=== PATIENT | male | born 1985 | race Caucasian/White ===

== ENCOUNTER 2023-03-15 13:24 | Emergency (ER) | payer BC ==
[2023-03-15] MEDS ORDERED: KETOROLAC 15 MG/ML 1 ML VIAL IM STA (14:05)
--- NOTE | 2023-03-15 14:06 | ED ---
Upper Extremity HPI - General Source: patient, family, RN notes reviewed Mode of arrival: ambulatory Limitations: no limitations <Jennifer Carbajal - Last Filed: 03/15/23 14:05> <Juan Luis Goncalves - Last Filed: 03/15/23 20:07> - General Chief Complaint: Extremity Injury, Upper Stated Complaint: fall Time Seen by Provider: 03/15/23 14:05 - History of Present Illness Initial Comments: patient is a 38-year-old male presenting to the ER with chief complaint of falling down stairs. Patient states that his left shoulder and hip have been hurting. Patient states difficult for him to walk. (Jennifer Carbajal) Patient originally evaluated as a quick note. Presents for evaluation after a fall over 24 hours ago. Was drinking and fell down steps very early on Thursday morning 03/14/2023. Fell down approximately 8 steps. Since that time is been complaining of left-sided shoulder pain, left hip pain. Has been able to ambulate however with some difficulty secondary to some pain however is able to move. Denies any other obvious injuries. Denies back pain, spine pain. Denies abdominal pain, nausea, vomiting. Does not believe he lost consciousness. Is not on blood thinners. Fall occurred approximately 36 hours prior to initial evaluation in the ER. Presents for further evaluation. (Juan Luis Goncalves) - Related Data Previous Rx's Medication Instructions Recorded Cyclobenzaprine [Flexeril] 5 mg PO TID PRN 7 Days #21 tab 03/15/23 HYDROcodone/APAP 5-325MG [[place] 1 tab PO Q6HR PRN 3 Days #12 tab 03/15/23 5-325] Lidocaine 5% Patch [Lidoderm 5% 1 patch TOPICAL DAILY PRN 7 Days 03/15/23 Patch] #7 patch Allergies Allergy/AdvReac Type Severity Reaction Status Date / Time No Known Allergies Allergy Verified 03/15/23 13:57 Review of Systems ROS Other: All systems not noted in ROS Statement are negative. <Jennifer Carbajal - Last Filed: 03/15/23 14:05> ROS Other: All systems not noted in ROS Statement are negative. <Juan uLis Goncalves - Last Filed: 03/15/23 20:07> ROS Statement: Those systems with pertinent positive or pertinent negative responses have been documented in the HPI. Review of Systems: CONST: Denies fever EYES: Denies blurry vision ENT: Denies nasal congestion C/V: Denies Chest pain RESP: Denies shortness of breath GI: Denies abdominal pain : Denies dysuria SKIN: Denies rash. MSK: Endorses left hip pain, left shoulder pain. NEURO: Denies headache (Juan Luis Goncalves) Past Medical History Past Medical History: No Reported History History of Any Multi-Drug Resistant Organisms: None Reported Past Surgical History: No Surgical Hx Reported Past Psychological History: No Psychological Hx Reported Smoking Status: Never smoker Past Alcohol Use History: Occasional Past Drug Use History: None Reported <Jennifer Carbajal - Last Filed: 03/15/23 14:05> General Exam Limitations: no limitations <Jennifer Carbajal - Last Filed: 03/15/23 14:05> <Juan Luis Goncalves - Last Filed: 03/15/23 20:07> - General Exam Comments Initial Comments: Visual Physical Exam Vital signs reviewed General: Well-appearing, nontoxic, no acute distress. Head: Normocephalic, atraumatic Eyes: PERRLA, EOMI ENT: Airway patent Chest: Nonlabored breathing Skin: No visual rash, normal skin tone Neuro: Alert and oriented 3 Musculoskeletal: No gross abnormalities (Jennifer Carbajal) General: Appears in mild distress secondary to pain. HEAD: Normal with no signs of head trauma. EYES: PERRLA, EOMI, conjunctiva normal, no discharge. Pupils are 3 mm and equ al bilaterally. ENT: Hearing grossly intact, normal oropharynx. RESPIRATORY: Clear breath sounds bilaterally. No wheezes, rales, or rhonchi. C/V: Regular rate and rhythm. S1 and S2 auscultated, no edema, peripheral pulses 2+ and intact throughout ABD: Abd is soft, nontender, nondistended EXT: Normal range of motion, no obvious deformity. Possible right greater toe fracture. Mild tenderness palpation of left wrist and right hand. No focal tenderness. No obvious deformities. Left shoulder tenderness to palpation over the distal clavicle. Some mild left rib tenderness in the midaxillary line of the fourth and fifth ribs. Some mild left lateral pelvis tenderness palpation. Normal range of motion of the left hip. Able to bear weight. SKIN: Bruising over her right greater toe. NEURO: Alert and oriented x 4. Cranial nerves II-XII intact. No focal sensory or strength deficits. GCS 15 (Juan Luis Goncalves) Course Vital Signs 03/15/23 03/15/23 03/15/23 13:55 16:06 17:50 Temperature 98 F 97.9 F Pulse Rate 112 H 107 H 78 Respiratory 20 18 16 Rate Blood Pressure 124/76 131/80 131/76 O2 Sat by Pulse 99 99 99 Oximetry Medical Decision Making <Jennifer Carbajal - Last Filed: 03/15/23 14:05> - Lab Data Result diagrams: 03/15/23 15:59 03/15/23 15:59 <Juan Luis Goncalves - Last Filed: 03/15/23 20:07> - Medical Decision Making I performed the quick note portion of the exam. Electronically signed by Jennifer Carbajal PA-C (Jennifer Carbajal) Was pt. sent in by a medical professional or institution ([facility]andall, PNEUMATIC TOOL REPAIRER, urgent care, hospital, or retirement...) When possible be specific @ -No Did you speak to anyone other than the patient for history (EMS, parent, family, police, friend...)? What history was obtained from this source @ -No Did you review nursing and triage notes (agree or disagree)? Why? @ -I reviewed and agree with nursing and triage notes Were old charts reviewed (outside hosp., previous admission, EMS record, old EKG, old radiological studies, urgent care reports/EKG's, retirement records)? Report findings @ -No old charts were reviewed Differential Diagnosis (chest pain, altered mental status, abdominal pain women, abdominal pain men, vaginal bleeding, weakness, fever, dyspnea, syncope, headache, dizziness, GI bleed, back pain, seizure, CVA, palpatations, mental health, musculoskeletal)? @ -Differential Musculoskeletal Muscular strain, contusion, ligament sprain, fracture, arthritis, septic arthritis, bursitis, cellulitis, muscle spasm, nerve compression, DVT, arterial occlusion, herpes zoster, electrolyte abnormality, tumor.... This is not meant to be in all inclusive list EKG interpreted by me (3pts min.). @ -None done X-rays interpreted by me (1pt min.). @ -Pelvis x-ray, left shoulder x-ray obtained via quick note positive for acute fracture of the distal left clavicle as well as fracture of the left iliac fracture of the pelvis. Patient also has a fracture of the left second rib it appears. X-rays of the right foot, left wrist, right hand negative for any obvious injury. CT interpreted by me (1pt min.). @ - CT brain, C-spine unremarkable for any obvious acute traumatic injury. CT chest abdomen pelvis reveals left comminuted fracture of the left iliac wing without any involvement of the left hip joint. Pelvic ring remains intact and stable. Surrounding edema and hematoma as expected with the comminuted fracture. CT of the chest reveals the distal clavicle fracture as well as left posterior rib fractures. They do see fourth and fifth rib fractures as well as second rib fractures. Cannot rule out fractures to the distal ribs however patient is no tenderness over the site. U/S interpreted by me (1pt. min.). @ -None done What testing was considered but not performed or refused? (CT, X-rays, U/S, labs )? Why? @ -None What meds were considered but not given or refused? Why? @ -None Did you discuss the management of the patient with other professionals (professionals i.e. , PA, PNEUMATIC TOOL REPAIRER, lab, RT, psych nurse, social media editor, senior analysis specialist, teacher, police commanding officer, family service caseworker)? Give summary @ -Discussed with on-call orthopedics Dr. Jeff, and patient has a stable pelvic fracture that is nonoperative management. Discussed the multiple rib fractures and left clavicle fracture. Recommended weightbearing as tolerated with crutches, sling, follow-up in the office this week. Patient was in agreement this plan. Also discussed the case with the radiologist who came on- call reviewed images with me and concurs with the results. Was smoking cessation discussed for >3mins.? @ -No Was critical care preformed (if so, how long)? @ -No Were there social determinants of health that impacted care today? How? (Homelessness, low income, unemployed, alcoholism, drug addiction, transportation, low edu. Level, literacy, decrease access to med. care, longterm, rehab)? @ -No Was there de-escalation of care discussed even if they declined (Discuss DNR or withdrawal of care, Hospice)? DNR status @ -No What co-morbidities impacted this encounter? (DM, HTN, Smoking, COPD, CAD, Cancer, CVA, ARF, Chemo, Hep., AIDS, mental health diagnosis, sleep apnea, morbid obesity)? @ -None Was patient admitted / discharged? Hospital course, mention meds given and route, prescriptions, significant lab abnormalities, going to OR and other pertinent info. @ -Based on the patient's presentation and physical exam, I'm concerned for possible pelvic injury and shoulder injury. X-rays obtained via quick no remarkable for left clavicle fracture, unread left second rib fracture, as well as left iliac spine fracture. We will obtain CT imaging to rule out any further injuries. Basic labs also be obtained. Patient agreement this plan. Injury occurred over 36 hours ago. Able to ambulate and bear weight however it is painful. Vital signs are within acceptable limits. No other findings on exam. Fall occurred 36 hours ago. Imaging remarkable for multiple left-sided rib fractures, left clavicle fra cture, as well as the left iliac crest fracture that is comminuted with surrounding hematoma as expected with the fracture. No other acute injuries seen on imaging. Discussed results with the patient as well as radiology on- call and orthopedic surgeon Dr. Jeff. After these discussions, plan is for patient to be discharged home with crutches, weight-bear as tolerated, follow-up with Dr. Jeff the office. They were in agreement this plan. He will be given analgesia medications for home. He will also be given a work note. Patient in agreement this plan. Strict return precautions discussed. I instructed the patient to follow up with their PCP in the next 1-3 days. I provided follow-up with Dr. Jeff.. I explained that the patient should return to the emergency department if they experience any worsening symptoms. Strict return precautions were discussed with the patient. The patient expressed understanding of these instructions. I answered all questions that the patient had. The patient was discharged home in fair condition with their prescriptions and follow up information. Undiagnosed new problem with uncertain prognosis? @ -No Drug Therapy requiring intensive monitoring for toxicity (Heparin, Nitro, Insulin, Cardizem)? @ -No Were any procedures done? @ -No Diagnosis/symptom? @ -Fall, left clavicle fracture, left rib fractures, left iliac spine fracture Acute, or Chronic, or Acute on Chronic? @ -Acute Uncomplicated (without systemic symptoms) or Complicated (systemic symptoms)? @ -Complicated Side effects of treatment? @ -No Exacerbation, Progression, or Severe Exacerbation? @ -No Poses a threat to life or bodily function? How? (Chest pain, USA, SD, pneumonia, PE, COPD, DKA, ARF, appy, cholecystitis, CVA, Diverticulitis, Homicidal, Suicidal, threat to staff... and all critical care pts) @ -Unlikely (Juan Luis Goncalves) - Lab Data Lab Results 03/15/23 03/15/23 Range/Units 15:59 15:59 WBC 7.9 (3.8-10.6) k/uL RBC 3.69 L (4.30-5.90) m/uL Hgb 13.1 (13.0-17.5) gm/dL Hct 36.8 L (39.0-53.0) % MCV 99.7 (80.0-100.0) fL MCH 35.4 H (25.0-35.0) pg MCHC 35.5 (31.0-37.0) g/dL RDW 11.8 (11.5-15.5) % Plt Count 126 L (150-450) k/uL MPV 8.9 Neutrophils % 79 % Lymphocytes % 15 % Monocytes % 4 % Eosinophils % 1 % Basophils % 0 % Neutrophils # 6.2 (1.3-7.7) k/uL Lymphocytes # 1.2 (1.0-4.8) k/uL Monocytes # 0.3 (0-1.0) k/uL Eosinophils # 0.1 (0-0.7) k/uL Basophils # 0.0 (0-0.2) k/uL Sodium 135 L (137-145) mmol/L Potassium 4.2 (3.5-5.1) mmol/L Chloride 99 (98-107) mmol/L Carbon Dioxide 30 (22-30) mmol/L Anion Gap 6 mmol/L BUN 21 H (9-20) mg/dL Creatinine 0.89 (0.66-1.25) mg/dL Est GFR (CKD-EPI)AfAm >90 (>60 ml/min/1.73 sqM) Est GFR (CKD-EPI)NonAf >90 (>60 ml/min/1.73 sqM) Glucose 114 H (74-99) mg/dL Calcium 9.0 (8.4-10.2) mg/dL Disposition <Stariha,Jennifer - Last Filed: 03/15/23 14:05> Is patient prescribed a controlled substance at d/c from ED?: Yes When asked, does pt state using other controlled substances?: No If prescribed controlled substance>3 days was MAPS reviewed?: Prescribed <3 Days If opioid is for acute pain is fill amount 7 days or less?: Yes If Rx opioid, was Start Talking consent form obtained?: Yes Time of Disposition: 18:45 <Juan Luis Goncalves - Last Filed: 03/15/23 20:07> Clinical Impression: Multiple rib fractures, Closed fracture of distal clavicle, Fracture of left iliac wing, Fall Disposition: HOME SELF-CARE Condition: Fair Instructions (If sedation given, give patient instructions): Pelvic Fracture (ED), Rib Fracture (ED) Prescriptions: Cyclobenzaprine [Flexeril] 5 mg PO TID PRN 7 Days #21 tab PRN Reason: Pain Lidocaine 5% Patch [Lidoderm 5% Patch] 1 patch TOPICAL DAILY PRN 7 Days #7 patch PRN Reason: Pain HYDROcodone/APAP 5-325MG [[place] 5-325] 1 tab PO Q6HR PRN 3 Days #12 tab PRN Reason: Pain Referrals: Pranay Rajan DO [Primary Care Provider] - 1-2 days Bethel Jeff MD [STAFF PHYSICIAN] - 1-2 days
--- NOTE | 2023-03-15 14:50 | XR ---
EXAMINATION TYPE: XR shoulder complete LT DATE OF EXAM: 03/15/2023 2:21 PM CLINICAL INDICATION:Male, 38 years old with history of pain; fell down stairs one day ago COMPARISON: TECHNIQUE: XR shoulder complete LT; shoulder was examined in AP, internally rotated and scapular Y p rojections. FINDINGS: Osseous mineralization appears appropriate. Acute appearing mildly comminuted fracture of the distal end of the clavicle with slight displacement and superior angulation of the major fracture fragment. Major distal fragment appears to remain articulating with the acromion. There is surrounding soft tis hannah swelling. Scapula and proximal humerus appear intact. No evidence of glenohumeral dislocation. IMPRESSION: Acute fracture of the distal left clavicle.
--- NOTE | 2023-03-15 14:55 | XR ---
EXAMINATION TYPE: XR Hip Bilateral and AP pelvis DATE OF EXAM: 03/15/2023 2:27 PM CLINICAL INDICATION:Male, 38 years old with history of pain; PH[facility] COMPARISON: None. TECHNIQUE: The bilateral hips were examined in the frontal and lateral projections and a AP pelvis. FINDINGS: Osseous mineralization appears appropriate. No evidence of lytic/blastic bony lesion. Cortical irregu larity on the left suggesting somewhat displaced fracture of the iliac bone along the iliac spine. Pe lvis otherwise appears intact. Mild bilateral hip arthropathy, with small cortical bump at the right femoral head neck junction which can be seen with cam type impingement. No fracture or dislocation se en involving either hip. IMPRESSION: Fracture of the left pelvis along the iliac spine.
[2023-03-15] MEDS ORDERED: MORPHINE SULFATE 4 MG/ML SYRINGE IVP STA ×2 (15:50→18:05)
[2023-03-15 16:10] LABS: Basophils % (A) 0 %; Eosinophils # (A) 0.1 k/uL (0-0.7); Eosinophils % (A) 1 %; HCT 36.8 % (39.0-53.0); HGB 13.1 gm/dL (13.0-17.5); Lymphocytes # (A) 1.2 k/uL (1.0-4.8); Lymphocytes % (A) 15 %; MCH 35.4 pg (25.0-35.0); MCHC 35.5 g/dL (31.0-37.0); MCV 99.7 fL (80.0-100.0); Mean Platelet Volume 8.9; Monocytes # (A) 0.3 k/uL (0-1.0); Monocytes % (A) 4 %; Neutrophils # (A) 6.2 k/uL (1.3-7.7); Neutrophils % (A) 79 %; Platelet Count 126 k/uL (150-450); RBC 3.69 m/uL (4.30-5.90); RDW 11.8 % (11.5-15.5); WBC 7.9 k/uL (3.8-10.6)
[2023-03-15 16:22] LABS: African American GFR (CKD) >90 (>60 ml/min/1.73 sqM); Anion Gap 6 mmol/L; Blood Urea Nitrogen 21 mg/dL (9-20); Carbon Dioxide 30 mmol/L (22-30); Chloride 99 mmol/L (98-107); Glucose 114 mg/dL (74-99); Non-African American GFR(CKD) >90 (>60 ml/min/1.73 sqM); Potassium 4.2 mmol/L (3.5-5.1); Sodium 135 mmol/L (137-145)
--- NOTE | 2023-03-15 17:14 | XR ---
EXAMINATION TYPE: XR hand complete RT, XR wrist limited LT DATE OF EXAM: 03/15/2023 4:59 PM CLINICAL INDICATION:Male, 38 years old with history of fall, pain; PH[facility] COMPARISON: None TECHNIQUE: XR hand complete RT, XR wrist limited LT Frontal, lateral and oblique views were obtained. FINDINGS: Normal alignment of the visualized joints. No acute osseous pathology is identified. No e vidence of soft tissue swelling. IMPRESSION: No acute osseous pathology.
--- NOTE | 2023-03-15 17:14 | XR ---
EXAMINATION TYPE: XR foot complete RT DATE OF EXAM: 03/15/2023 5:00 PM CLINICAL INDICATION:Male, 38 years old with history of fall, pain; COMPARISON: None TECHNIQUE: XR foot complete RT examined in the AP, oblique, and lateral projections. FINDINGS: No evidence of any acute osseous pathology. No evidence of soft tissue swelling. Joints are preserve d. IMPRESSION: No evidence of acute fracture.
[2023-03-15 18:15] VITALS: BP 131/76; TEMP 97.9
--- NOTE | 2023-03-15 18:29 | CT ---
EXAMINATION TYPE: CT ChestAbdPelvis w con CT DLP: 2309 mGycm, Automated exposure control for dose reduction was used. DATE OF EXAM: 03/15/2023 4:35 PM COMPARISON: None. CLINICAL INDICATION:Male, 38 years old with history of pain, rib fx, pelvis fx; PH[facility], Fell down the st airs x 1 day ago, states that he has a confirmed clavicular fracture, pelvic fracture, and 2 rib frac tures Technique: Multiple axial images of the chest, abdomen, and pelvis were obtained. Two-dimensional cor onal and sagittal reconstructions were obtained. Contrast used:100 cc mL of Isovue 300 with IV Contrast, Oral contrast used: without Oral Contrast Findings: CHEST: LUNGS/ PLEURA: Mild dependent atelectasis in the lungs, with trace pleural effusions. There are a few relatively small areas of patchy consolidative and groundglass opacity throughout both lungs as well , likely resenting small areas of contusion. No sizable pneumothorax is demonstrated, however a very tiny amount of pneumothorax on the left cannot be excluded. AIRWAY: Patent and unremarkable. HEART: Size within normal limits. MEDIASTINUM: No gross evidence of adenopathy or hematoma.. VASCULATURE: No aortic aneurysm or dissection. Grossly preserved enhancement of the pulmonary arteri es in the limits of the exam. MUSCULOSKELETAL: Mildly displaced fracture of the distal left clavicle. AC joint appears maintained. No sternal or spine fracture identified. No right rib fractures are seen. Fracture of the left stacker ior second rib with mild to moderate displacement. Minimally displaced fracture of the left posterior fourth rib suggested. Possible nondisplaced fracture of the posterior fifth rib. Minimally displaced fracture of the posterior left sixth rib. Possible nondisplaced posterior seventh, eighth, ninth, 10 th, 11th ribs. SOFT TISSUES/LYMPH NODES: There is mild extrapleural soft tissue thickening on the left related to th e rib fractures. There is soft tissue swelling and edema seen about the left clavicle and upper chest , likely related to the clavicle and upper rib fractures. A few tiny hyperdensities within the soft t issues superior to the distal end of the left clavicle, very likely fracture fragments. LOWER NECK: No significant findings. ABDOMEN: Some limitation by motion and streak artifacts ABDOMEN LIVER: Unremarkable GALLBLADDER AND BILE DUCTS: Unremarkable. PANCREAS: Unremarkable. SPLEEN: Unremarkable. ADRENAL GLANDS: Unremarkable. KIDNEYS AND URETERS: Kidneys enhance symmetrically. There is no evidence of hydronephrosis. PELVIS BLADDER: Unremarkable REPRODUCTIVE: r prostate appears somewhat prominent measuring 4.9 cm transverse and contains some coa rse calcifications towards its center. ABDOMEN & PELVIS STOMACH AND BOWEL: Stomach and small bowel are nondistended. No evidence of bowel obstruction. Append ix moderate stool throughout the colon without focal abnormality detected. PERITONEUM: No evidence of pneumoperitoneum or free fluid. VASCULATURE: No evidence of aortic aneurysm. Vessels appear to enhance normally. No evidence to sugge st contrast extravasation. MUSCULOSKELETAL: There is an acute comminuted fracture of the left iliac wing laterally, major compon ent extends from the posterior aspect anteriorly and inferiorly, extending through the anterior iliac wing, with overall mild/moderate displacement of the major fracture fragments, plus there are multip le intervening smaller fragments which appear mildly displaced and angulated. Remainder of the pelvis and the sacrum appear intact and normally aligned. Hips appear intact. LYMPH NODES: No gross evidence for lymphadenopathy. SOFT TISSUE/ABDOMINAL WALL: There is soft tissue swelling and hematoma surrounding the left iliac win g fracture, with enlargement of the iliacus muscle and gluteal musculature. Left quadratus lumborum i s also mildly enlarged. Left psoas muscle appears mildly displaced anteriorly as a result. Relatively small retroperitoneal hemorrhage is seen, lateral to the psoas and anterior to the quadratus/iliacus muscles. There is subcutaneous fat stranding in the superficial fat over the left gluteal region con sistent with contusion. No radiopaque foreign body is seen. IMPRESSION: CHEST: 1. A few relatively small areas of opacity throughout both lungs likely represent small areas of con tusion. 2. No sizable pneumothorax is demonstrated, however a very tiny amount of pneumothorax on the left c annot be excluded. 3. Mildly displaced fracture of the distal left clavicle. Multiple left posterior rib fractures, as described; most are nondisplaced but there is mild/moderate displacement of the second rib fracture. 4. Mild extrapleural soft tissue thickening in the left upper chest and soft tissue swelling and shikha ma about the left clavicle, likely related to the fractures and contusion. ABDOMEN/PELVIS: 1. Acute comminuted fracture of the left iliac wing, with overall mild/moderate displacement of the major fracture fragments. 2. Soft tissue swelling and hematoma surrounding the left iliac wing fracture, with enlargement of t he iliacus muscle and gluteal musculature. Left quadratus lumborum is also mildly enlarged. Left psoa s muscle appears mildly displaced anteriorly as a result. 3. Relatively small retroperitoneal hemorrhage on the left, lateral to the psoas and anterior to the quadratus/iliacus muscles. 4. Subcutaneous fat stranding in the superficial fat over the left gluteal region consistent with co ntusion. No radiopaque foreign body is seen. 5. No evidence of acute solid or hollow organ injury within the abdomen or pelvis.
--- NOTE | 2023-03-15 18:42 | CT ---
EXAMINATION TYPE: CT brain cspine wo con CT DLP: 2309 mGycm, Automated exposure control for dose reduction was used. DATE OF EXAM: 03/15/2023 4:35 PM COMPARISON: None. CLINICAL INDICATION:Male, 38 years old with history of pain; Fell down the stairs x 1 day ago, states that he has a confirmed clavicular fracture, pelvic fracture, and 2 rib fractures. TECHNIQUE: Brain: Multiple axial CT images of the brain were obtained without IV contrast. Cspine: Axial CT images from the skull base to the inferior aspect of T2 we obtained without intraven ous contrast. Coronal and sagittal reformatted images were also reviewed. FINDINGS: Brain: Extra-axial spaces: No abnormal extra-axial fluid collections. Ventricular system: Within normal limits. Cerebral parenchyma: No increased attenuation to suggest acute intraparenchymal hemorrhage. The gra y-white matter interface appears maintained. No significant atrophy. White matter unremarkable by C T. Cerebellum: No acute abnormality. Mass effect: No evidence of mass effect or midline shift. Intracranial vasculature: Unremarkable Soft tissues: Normal. Visualized orbits: Orbital contents appear grossly intact. Calvarium/osseous structures: No evidence of acute fracture. Moderate nasal septal deviation towards the right with small osseous spur in its midportion. Paranasal sinuses and mastoid air cells: Clear MRI is more sensitive for detecting acute processes such as infarct, and may be considered if clinica lly warranted. Cervical spine: Fracture: None seen. Osseous structures, spinal canal/neural foramina: Osseous structures appear unremarkable. No signific ant bony canal or neural foraminal stenoses. No significant degenerative changes. Vertebral alignment: No traumatic malalignment. Neck soft tissues: Partially seen soft tissue swelling at the left upper chest/base of neck; Please r efer to separate same day body CT for further description of findings. Otherwise the neck soft tissue s appear within normal limits. Other: At the visualized lung apices, no definite acute infiltrate is seen. There may be a tiny amoun t of left-sided pneumothorax, but no large pneumothorax is detected. IMPRESSION: CT head: 1. No acute intracranial CT abnormality. CT cervical spine: 1. No evidence of acute cervical spine fracture or traumatic malalignment. 2. No sizable pneumothorax is demonstrated, however a very tiny amount of pneumothorax at the left mynor ng apex cannot be excluded.
[2023-03-15] MEDS ORDERED: ACET/COD 300 MG/30 MG STARTER PACK 6 TAB BTL PO STA (18:53)
[2023-03-15] MEDS ORDERED: LIDOCAINE 5% PATCH TOPICAL STA (18:53)
[2023-03-15 20:07] VITALS: PULSE 92; RESP 18
== END 2023-03-15 20:05 | disposition home or self-care (01) ==
LOC: EC 13:24 → SUPCPDRO 13:24 → EC 20:05
DX: S42.032A Displaced fracture of lateral end of left clavicle, initial encounter for closed fracture (principal); S22.42XA Multiple fractures of ribs, left side, initial encounter for closed fracture; S32.302A Unspecified fracture of left ilium, initial encounter for closed fracture; W10.9XXA Fall (on) (from) unspecified stairs and steps, initial encounter
CPT/HCPCS: 36415; 80048; 85025; 73030; 73521; 73100; 73130; 73630; 72125; 70450; 71260; 74177; 99284; 96374; 96376; 96372; J2270; J1885; Q9967